=== PATIENT | male | born 1995 | race Caucasian/White ===

== ENCOUNTER → 2018-11-01 | Outpatient (CLI) | payer OTHER ==
--- NOTE | 2018-11-07 10:22 | ECHO ---
DATE OF STUDY: 11/01/2018 REFERRING INDIVIDUAL: Preet VIOLETTA Cortez INDICATION: Abnormal electrocardiogram (ECG). HEIGHT: 67 inches WEIGHT: 175 pounds 2-D MEASUREMENTS: Left atrium: 3.4 cm Aortic root: 3.0 cm Ventricular septum: 0.83 cm Posterior wall: 0.97 cm Left ventricle diastole: 4.6 cm LVOT: 2.3 cm Proximal ascending aorta: 2.5 cm Inferior vena cava: 1.3 cm DOPPLER MEASUREMENTS: Aortic valve velocity: 110 cm/s LVOT velocity: 88.7 cm/s Mitral E velocity: 63.1 cm/s Mitral A velocity: 44.1 cm/s Mitral deceleration time: 257 ms Very mild tricuspid regurgitation. Estimated right ventricle systolic pressure 19-24 mmHg assuming an atrial pressure of 5-10 mmHg. Very mild pulmonic regurgitation. Pulmonary artery systolic pressure: 27 mmHg MITRAL ANNULAR TISSUE DOPPLER: E prime septal: 11.4 cm/s E prime lateral: 17.7 cm/s DESCRIPTION: Rhythm was sinus rhythm and sinus bradycardia observed. Image quality was excellent. No pericardial effusion. This was a 2-D, M-mode, color flow Doppler and pulse waved Doppler examination and included mitral annular tissue Doppler. CONCLUSIONS: 1. Normal left ventricle internal dimensions and wall thickness. Normal regional LV wall motion and wall thickening. Normal LV systolic function. Left ventricular ejection fraction (LVEF) 57%. Normal LV diastolic function. 2. Normal echocardiogram-Doppler.
--- NOTE | 2018-11-07 14:16 | ECHO ---
DATE OF STUDY: 11/01/2018 REFERRING INDIVIDUAL: Preet Cortez VIOLETTA INDICATION: Abnormal ECG. HEIGHT: 67 inches. WEIGHT: 175 pounds. 2-D MEASUREMENTS: Left atrium: 3.4 cm Aortic root: 3.0 cm Left ventricle diastole: 4.6 cm Ventricular septum: 0.83 cm Posterior wall: 0.97 cm LVOT: 2.3 cm Proximal ascending aorta: 2.5 cm Inferior vena cava: 1.3 cm DOPPLER MEASUREMENTS: Aortic valve velocity: 110 cm/sec LVOT velocity: 88.7 cm/sec Mitral E velocity: 63.1 cm/sec Mitral A velocity: 44.1cm/sec Mitral deceleration time: 257 ms Very mild tricuspid regurgitation Estimated right ventricular systolic pressure 19-24 mmHg assuming a right atrial pressure of 5-10 mmHg Very mild pulmonic regurgitation Pulmonary artery systolic pressure 27 mmHg MITRAL ANNULAR TISSUE DOPPLER: E prime septal: 11.9 cm/sec E prime lateral: 17.7 cm/sec DESCRIPTION: The rhythm was sinus bradycardia and sinus rhythm. Image quality was excellent. No pericardial effusion. This was a 2-D, M-mode, color flow Doppler and pulse wave Doppler examination and included mitral annular tissue Doppler. CONCLUSIONS: 1. Normal echocardiogram Doppler. 2. Normal left ventricle internal dimensions and wall thickness. Normal regional LV wall motion and wall thickening. Normal LV systolic function. LVEF 57%. Normal LV diastolic function. DATE OF STUDY: 11/01/2018 REFERRING INDIVIDUAL: Preet Cortez VIOLETTA INDICATION: Abnormal electrocardiogram (ECG). HEIGHT: 67 inches WEIGHT: 175 pounds 2-D MEASUREMENTS: Left atrium: 3.4 cm Aortic root: 3.0 cm Ventricular septum: 0.83 cm Posterior wall: 0.97 cm Left ventricle diastole: 4.6 cm LVOT: 2.3 cm Proximal ascending aorta: 2.5 cm Inferior vena cava: 1.3 cm DOPPLER MEASUREMENTS: Aortic valve velocity: 110 cm/s LVOT velocity: 88.7 cm/s Mitral E velocity: 63.1 cm/s Mitral A velocity: 44.1 cm/s Mitral deceleration time: 257 ms Very mild tricuspid regurgitation. Estimated right ventricle systolic pressure 19-24 mmHg assuming an atrial pressure of 5-10 mmHg. Very mild pulmonic regurgitation. Pulmonary artery systolic pressure: 27 mmHg MITRAL ANNULAR TISSUE DOPPLER: E prime septal: 11.4 cm/s E prime lateral: 17.7 cm/s DESCRIPTION: Rhythm was sinus rhythm and sinus bradycardia observed. Image quality was excellent. No pericardial effusion. This was a 2-D, M-mode, color flow Doppler and pulse waved Doppler examination and included mitral annular tissue Doppler. CONCLUSIONS: 1. Normal left ventricle internal dimensions and wall thickness. Normal regional LV wall motion and wall thickening. Normal LV systolic function. Left ventricular ejection fraction (LVEF) 57%. Normal LV diastolic function. 2. Normal echocardiogram-Doppler. [facility]
== END ==
LOC: M CARPUL 10:00
PROVIDERS: ATTEND Physician Assistant
DX: R94.31 Abnormal electrocardiogram [ECG] [EKG] (principal)